=== PATIENT | male | born 1950 | race Caucasian/White ===

== ENCOUNTER 2017-04-04 22:42 | Emergency (ER) | payer OTHER, MEDICARE ==
[~2017-04-04 22:42] MED LIST: ACET-1718 PO; ALPR-1 PO; ALPR-699 PO; BACL-1 PO; CYCL-277 PO; DIV500 PO; HYDR-317; LAMO150T36 PO; LANS15CA54 PO; LEVO25TA57 PO; OLME5TAB8 PO; ONDA4TAB PO; OXYC-865 PO; OXYC-869 PO; PER PO; RANI-318 PO; TADA20TA33 PO; TAMS0.4C25 PO; [UNRECOGNIZED DRUG - CODE] PO
--- NOTE | 2017-04-04 22:49 | ER Report ---
History and Physical Time Seen By MD: 22:48 HPI/ROS CHIEF COMPLAINT: Fall, right rib pain, right wrist pain HISTORY OF PRESENT ILLNESS: 66-year-old male was ascending some stairs when he fell forward onto his right wrist and right ribs. He also struck his right face. He denies LOC, headache, neck pain or shortness of breath. He describes his neck as being sore. Patient has a previous history of fractured right ribs. Patient denies shortness of breath. He points to the right lateral ribs as a site of pain. He notes increased pain with deep inspiration. Patient is right-hand dominant. REVIEW OF SYSTEMS: Respiratory: No cough, no dyspnea. Cardiovascular: As above Gastrointestinal: No vomiting, no abdominal pain. Musculoskeletal: No back pain. Allergies: Coded Allergies: No Known Drug Allergies (Unverified , 07/15/14) Home Meds Active Scripts Oxycodone Hcl/Acetaminophen (PERCOCET 5-325 MG TABLET) 1 Each Tablet, 1 EACH PO Q4-6H Y for PAIN, #20 Prov:MILADIS LINN DO 04/05/17 Oxycodone Hcl/Acetaminophen (PERCOCET 7.5-325 MG TABLET) 1 Each Tablet, 1 EACH PO Q4-6H, #60 Prov:NEGAR MACKENZIE DO 07/15/14 Reported Medications Cyclobenzaprine Hcl (CYCLOBENZAPRINE HCL) 5 Mg Tablet, 10 MG PO Q6H Y for MUSCLE SPASMS, #18 TAB TAKE TWO TABLETS BY MOUTH THREE TIMES A DAY 07/15/14 Acetaminophen With Codeine # 3 (ACETAMINOPHEN-COD #3 TABLET) 1 Each Tablet, 1-2 EACH PO Q6H Y for PAIN, TAB 07/15/14 Ranitidine Hcl (RANITIDINE HCL) 150 Mg Tablet, 150 MG PO DAILY 07/09/14 Lamotrigine (LAMOTRIGINE) 150 Mg Tablet, 150 MG PO DAILY 07/09/14 Tadalafil (CIALIS) 20 Mg Tablet, 20 MG PO 07/09/14 Baclofen (BACLOFEN) 10 Mg Tablet, 10 MG PO TID, #30 TAB TAKE 2 TABLETS BY MOUTH THREE TIMES A DAY 07/09/14 Lansoprazole (PREVACID) 15 Mg Capsule.dr, 30 MG PO BID 11/17/13 Levothyroxine Sodium (SYNTHROID) 25 Mcg Tablet, 50 MCG PO QDAY 11/17/13 Olmesartan Medoxomil (BENICAR) 5 Mg Tablet, 40 MG PO DAILY 11/17/13 Tamsulosin Hcl (FLOMAX) 0.4 Mg Cap.er.24h, 0.4 MG PO 11/17/13 Alprazolam (Alprazolam) 0.5 Mg Tab.rapdis, 0.5 MG PO QID Y for ANXIETY 05/15/11 Divalproex Sodium (Depakote) 500 Mg Tabcr, 1500 MG PO QHS 05/15/11 Reviewed Nurses Notes: Yes Old Medical Records Reviewed: Yes Hx Smoking: Yes Smoking Status: Former Smoker Hx Substance Use Disorder: No Hx Alcohol Use: Yes Constitutional Vital Sign - Last 24 Hours 04/04/17 04/04/17 04/04/17 04/04/17 22:48 22:50 22:52 22:57 Temp 98.3 Pulse 99 101 94 Resp 20 B/P (MAP) 172/100 (124) 172/100 Pulse Ox 93 94 94 O2 Delivery Room Air 04/04/17 04/04/17 04/04/17 04/04/17 23:00 23:02 23:07 23:32 Pulse 98 97 92 B/P (MAP) 166/110 (128) 145/95 (112) Pulse Ox 93 91 92 04/04/17 04/04/17 04/04/17 04/04/17 23:37 23:42 23:47 23:52 Pulse 93 90 91 92 Pulse Ox 93 93 92 89 04/04/17 04/05/17 04/05/17 04/05/17 23:57 00:00 00:02 00:07 Pulse 88 89 91 B/P (MAP) 142/93 (109) Pulse Ox 92 92 92 Physical Exam General Appearance: The patient is alert, has no immediate need for airway protection and no current signs of toxicity. Mild distress, alert and oriented 3, vital signs stable, pulse ox normal, aggressive palpation of the midline of the neck reveals no tenderness HEENT: Pupils equal and round no injection. TMs normal, oropharynx without dental trauma, there is a contusion to the right maxillary cheek. Respiratory: Chest is non tender, lungs are clear to auscultation. Moderate tenderness on the right lateral ribs, no bruising or barton Cardiac: regular rate and rhythm Gastrointestinal: Abdomen is soft and non tender, no masses, bowel sounds normal. Musculoskeletal: Neck: Neck is supple and non tender. Extremities have full range of motion and are non tender. Right wrist with moderate tenderness and soft tissue swelling. Patient notes decreased range of motion. Skin: No rashes or lesions. DIFFERENTIAL DIAGNOSIS: After history and physical exam differential diagnosis was considered for fall in the elderly including but not limited to intracranial injury, long bone and pelvic bone fracture, spinal injury, and intrathoracic injury. Medical Decision Making EKG/Imaging Imaging X-ray: Right ribs, 4 views was obtained. I viewed the images myself on the PACS system. My interpretation of the images is: 2 nondisplaced rib fractures, no evidence of pneumothorax or hemothorax. The radiologist interpretation had no clinically significant variation from this interpretation. X-ray: Right wrist, 3 views was obtained. I viewed the images myself on the PACS system. My interpretation of the images is: Nondisplaced distal radius fracture. The radiologist interpretation had no clinically significant variation from this interpretation. ED Course/Re-evaluation ED Course Patient was admitted to an examination room. H&P was done. The differential diagnoses was considered. On clinical examination. On clinical examination. Patient has significant right wrist and right rib pain. Diagnostic x-rays are ordered. He was offered medication for pain but declined. His diagnostic studies show 2 nondisplaced rib fracture, 7 and 8. There is no pneumothorax. Patient's wrist shows a nondisplaced crack through the distal radius. Patient was placed in a splint with Kenny wrap. Patient advised ibuprofen 400 mg 3 times daily with food. He's also given a prescription for Percocet for temporary pain relief. He is advised to call [facility] for casting of his right wrist. Decision to Disposition Date: Apr 05, 2017 Decision to Disposition Time: 00:00 Depart Departure Latest Vital Signs Vital Signs Date Time Temp Pulse Resp B/P (MAP) Pulse Ox O2 Delivery O2 Flow Rate FiO2 04/05/17 00:07 91 92 04/05/17 00:00 142/93 (109) 04/04/17 22:50 98.3 20 Room Air Impression: Primary Impression: Right rib fracture Additional Impressions: Distal radius fracture, right Fall from ground level Condition: Improved Disposition: HOME OR SELF-CARE Referrals: YWA TAPIA MD (PCP) PURVI RODARTE MD New Scripts Oxycodone Hcl/Acetaminophen (PERCOCET 5-325 MG TABLET) 1 Each Tablet 1 EACH PO Q4-6H Y for PAIN, #20 Prov: MILADIS LINN DO 04/05/17 Patient Instructions: Rib Fracture (ED), Wrist Fracture in Adults (ED) Additional Instructions: Take ibuprofen 200 mg 2 tablets 3 times a day with food Apply ice packs to the affected areas Follow-up with [facility] [phone], address [address] Problem Qualifiers Primary Impression: Right rib fracture Encounter type: initial encounter Rib fracture type: multiple ribs Fracture type: closed Qualified Codes: S22.41XA - Multiple fractures of ribs , right side, initial encounter for closed fracture Additional Impressions: Distal radius fracture, right Encounter type: initial encounter Fracture type: closed Fracture morphology : unspecified fracture morphology Qualified Codes: S52.501A - Unspecified fracture of the lower end of right radius, initial encounter for closed fracture MILADIS LINN DO Apr 04, 2017 22:49
--- NOTE | 2017-04-04 23:55 | RADIOLOGY IMAGING REPORT ---
FACILITY: [facility] PATIENT NAME: Clifton Arteaga : 1950 MR: [id number] V: [id number] EXAM DATE: ORDERING PHYSICIAN: MILADIS LINN TECHNOLOGIST: Location: [facility] Patient: Clifton Arteaga : 1950 Visit/Account:[id number] Date of Sevice: 04/04/2017 INDICATION: fall EXAM DATE: 04/04/2017 11:00 PM COMPARISON: Unavailable at the time of dictation. FINDINGS: 2 views right ribs, 2 views of the chest. Mineralization is normal. Mild cortical irregularity at th e lateral aspects of the 7th and 8th ribs. Lungs are well-expanded and clear. No pleural effusion o r pneumothorax. Heart size is normal. IMPRESSION: Question nondisplaced lateral fractures of the right 7th and 8th ribs. Report Dictated By: Abiodun Avelar MD at 04/04/2017 11:44 PM Report E-Signed By: Abiodun Avelar MD at 04/04/2017 11:49 PM WSN:[id number]
--- NOTE | 2017-04-04 23:55 | RADIOLOGY IMAGING REPORT ---
FACILITY: [facility] PATIENT NAME: Clifton Arteaga : 1950 MR: [id number] V: [id number] EXAM DATE: ORDERING PHYSICIAN: MILADIS LINN TECHNOLOGIST: Location: [facility] [place] Patient: Clifton Arteaga : 1950 Visit/Account:[id number] Date of Sevice: 04/04/2017 INDICATION: fall EXAM DATE: 04/04/2017 11:00 PM COMPARISON: None. FINDINGS: 3 views right wrist. Mineralization may be low. There is a lucency through the distal anterior aspec t of the radius on the oblique view. No additional evidence of fracture or dislocation. Mild osteoa rthrosis in the wrist. Soft tissues are unremarkable. IMPRESSION: Suspected nondisplaced fracture through the distal anterior aspect of the right radius. Report Dictated By: Abiodun Avelar MD at 04/04/2017 11:49 PM Report E-Signed By: Abiodun Avelar MD at 04/04/2017 11:52 PM WSN:[id number]
--- NOTE | 2017-04-04 23:55 | RADIOLOGY IMAGING REPORT ---
FACILITY: [facility] [place] PATIENT NAME: Clifton Arteaga : 1950 MR: [id number] V: [id number] EXAM DATE: ORDERING PHYSICIAN: MILADIS LINN TECHNOLOGIST: Location: [facility] [place] Patient: Clifton Arteaga : 1950 Visit/Account:[id number] Date of Sevice: 04/04/2017 INDICATION: fall EXAM DATE: 04/04/2017 11:00 PM COMPARISON: Unavailable at the time of dictation. FINDINGS: 2 views right ribs, 2 views of the chest. Mineralization is normal. Mild cortical irregularity at th e lateral aspects of the 7th and 8th ribs. Lungs are well-expanded and clear. No pleural effusion o r pneumothorax. Heart size is normal. IMPRESSION: Question nondisplaced lateral fractures of the right 7th and 8th ribs. Report Dictated By: Abiodun Avelar MD at 04/04/2017 11:44 PM Report E-Signed By: Abiodun Avelar MD at 04/04/2017 11:49 PM WSN:[id number]
[2017-04-05] VITALS: BP 142/93
[2017-04-05] MEDS ORDERED: OXYC-865 PO (00:02)
[2017-04-05] MEDS ORDERED: oxyCODONE/ACETAMIN 5/325MG TH 2 TAB/BOTTLE PO ONE (00:05)
== END 2017-04-05 00:22 | disposition home or self-care (01) ==
LOC: ER 22:45
DX: S22.41XA Multiple fractures of ribs, right side, initial encounter for closed fracture (principal); S52.501A Unspecified fracture of the lower end of right radius, initial encounter for closed fracture; W18.30XA Fall on same level, unspecified, initial encounter
CPT/HCPCS: 71046; 71100; 73110; 99283; L0172; L3763

== ENCOUNTER → 2017-08-22 | Outpatient (CLI) | payer OTHER, MEDICARE | LOC: LAB 07:51 | PROVIDERS: ATTEND Nurse Practitioner Adult Health | DX: Z51.81 Encounter for therapeutic drug level monitoring (principal); Z79.899 Other long term (current) drug therapy; E03.9 Hypothyroidism, unspecified; I10 Essential (primary) hypertension | CPT/HCPCS: 36415; 80164; 82040; 82247; 82310; 82374; 82435; 82565; 82947; 84075; 84132; 84155; 84295; 84443; 84450; 84460; 84520 ==

== ENCOUNTER → 2018-04-25 | Outpatient (CLI) | payer OTHER, MEDICARE ==
[~2018-04-25] MED LIST changes: +IOPAMIDOL 61% 100 ML INFUS BTL 100 ML ONE
[2018-04-25 09:01] LABS: LDL CHOLESTEROL 111 mg/dl
--- NOTE | 2018-04-25 14:29 | RADIOLOGY IMAGING REPORT ---
[place] [facility] [place]IENT NAME: Clifton Arteaga : 1950 MR: [id number] V: [id number] EXAM DATE: ORDERING PHYSICIAN: HENRY RAO TECHNOLOGIST: Location: [facility] Patient: Clifton Arteaga : 1950 Visit/Account:[id number] Date of Sevice: 04/25/2018 CT BRAIN WITH AND WITHOUT INDICATION: Falls, dizziness COMPARISON: July 09, 2014 TECHNIQUE: Pre and postcontrast head CT performed with sagittal and coronal reformations. 90 mL Isovu e 300 injected. One of the following dose optimization techniques was utilized in the performance of this exam: automated exposure control; adjustment of the mA and/or kV according to patient size; or u se of iterative reconstruction technique. Specific details can be referenced in the facility's radio logy CT exam operational policy. FINDINGS: The basal cisterns, kearney-white differentiation and convexity sulci are maintained. No intracranial he morrhage, hydrocephalus or midline shift. Normal orbital soft tissues. Two unchanged right temporoparietal periventricular calcifications the largest measuring 4 mm, axial image 46 on the noncontrast head CT. Clear mastoid air cells, mild right ethmoid sinus mucosal thickening. Hyperostosis frontalis. Unchang ed benign sclerotic focus in the right occipital bone, axial image 32. Otherwise unremarkable osseous structures. No pathologic intracranial enhancement. No apparent vascular abnormality. IMPRESSION: 1. Two unchanged in hindsight review punctate to small right temporoparietal periventricular calcific ations in keeping with residua of prior inflammation, infection or ischemia. 2. Otherwise unremarkable head CT without and with contrast. Report Dictated By: Ru Prakash MD at 04/25/2018 2:16 PM Report E-Signed By: Ru Prakash MD at 04/25/2018 2:24 PM WSN:[email or web address]
== END ==
LOC: CT 01:46
PROVIDERS: ATTEND Nurse Practitioner Adult Health
DX: R41.3 Other amnesia (principal); R29.6 Repeated falls; F31.9 Bipolar disorder, unspecified; G93.89 Other specified disorders of brain
CPT/HCPCS: 36415; 70470; 84153; 84443; 84550; 85027; Q9967; 82040; 82247; 82310; 82374; 82435; 82465; 82565; 82947; 83718; 84075; 84132; 84155; 84295; 84450; 84460; 84478; 84520

== ENCOUNTER 2018-09-07 13:48 | Emergency (ER) | payer OTHER, MEDICARE ==
[~2018-09-07 13:48] MED LIST changes: -IOPAMIDOL 61% 100 ML INFUS BTL 100 ML ONE
[2018-09-07] MEDS ORDERED: ASPIRIN 81 MG CHEW PO ONE (13:50)
--- NOTE | 2018-09-07 13:50 | ER Report ---
History and Physical Time Seen By MD: 13:47 HPI/ROS CHIEF COMPLAINT: Mid epigastric pain and burning sensation HISTORY OF PRESENT ILLNESS: Patient is a 68-year-old male here with complaints of midepigastric burning sensation which has been ongoing since this morning. Patient was evaluated at his neurology appointment at which time a CK-MB and EKG were completed. EKG showed no acute findings. Reportedly a CK-MB came back elevated prompting the patient to be seen in the emergency department. Patient reports that he feels that his current pain is due to gastric reflux. Denies prior history of coronary artery disease however he does admit to history of hypertension in the past. Patient is hemodynamically stable at time of evaluation, in no acute distress. EKG showed no ischemic changes. REVIEW OF SYSTEMS: Constitutional: No fever, no chills. Eyes: No discharge. ENT: No sore throat. Cardiovascular: + mid epigastric abdominal pain/burning Respiratory: No cough, no shortness of breath. Gastrointestinal: + mid epigastric pain, no vomiting. Genitourinary: No hematuria. + dysuria Musculoskeletal: No back pain. Skin: No rashes. Neurological: No headache. Allergies: Coded Allergies: No Known Drug Allergies (Unverified , 07/15/14) Home Meds Reported Medications Allopurinol (ZYLOPRIM) 300 Mg Tablet, 300 MG PO QDAY, TAB 09/07/18 Melatonin (MELATONIN) 5 Mg Tablet, 5 MG PO HS 09/07/18 Gabapentin (GABAPENTIN) 300 Mg Capsule, 300 MG PO TID, CAPSULE 09/07/18 Doxepin Hcl (DOXEPIN HCL) 50 Mg Capsule, 50 MG PO DAILY, CAPSULE 09/07/18 Citalopram Hydrobromide (CITALOPRAM HBR) 20 Mg Tablet, 20 MG PO QDAY, #5 TAB 09/07/18 Meclizine Hcl (MECLIZINE HCL) 12.5 Mg Tablet, 25 MG PO BID 09/07/18 Cyclobenzaprine Hcl (CYCLOBENZAPRINE HCL) 5 Mg Tablet, 10 MG PO Q6H PRN for MUSCLE SPASMS, #18 TAB TAKE TWO TABLETS BY MOUTH THREE TIMES A DAY 07/15/14 Lansoprazole (PREVACID) 15 Mg Capsule.dr, 30 MG PO BID 11/17/13 Olmesartan Medoxomil (BENICAR) 5 Mg Tablet, 40 MG PO DAILY 11/17/13 Tamsulosin Hcl (FLOMAX) 0.4 Mg Cap.er.24h, 0.4 MG PO 11/17/13 Divalproex Sodium (Depakote) 500 Mg Tabcr, 1500 MG PO QHS 05/15/11 Discontinued Reported Medications Acetaminophen With Codeine # 3 (ACETAMINOPHEN-COD #3 TABLET) 1 Each Tablet, 1-2 EACH PO Q6H PRN for PAIN, TAB 07/15/14 Ranitidine Hcl (RANITIDINE HCL) 150 Mg Tablet, 150 MG PO DAILY 07/09/14 Lamotrigine (LAMOTRIGINE) 150 Mg Tablet, 150 MG PO DAILY 07/09/14 Tadalafil (CIALIS) 20 Mg Tablet, 20 MG PO 07/09/14 Baclofen (BACLOFEN) 10 Mg Tablet, 10 MG PO TID, #30 TAB TAKE 2 TABLETS BY MOUTH THREE TIMES A DAY 07/09/14 Levothyroxine Sodium (SYNTHROID) 25 Mcg Tablet, 50 MCG PO QDAY 11/17/13 Alprazolam (Alprazolam) 0.5 Mg Tab.rapdis, 0.5 MG PO QID PRN for ANXIETY 05/15/11 Discontinued Scripts Oxycodone Hcl/Acetaminophen (PERCOCET 5-325 MG TABLET) 1 Each Tablet, 1 EACH PO Q4-6H PRN for PAIN, #20 Prov:MILADIS LINN DO 04/05/17 Oxycodone Hcl/Acetaminophen (PERCOCET 7.5-325 MG TABLET) 1 Each Tablet, 1 EACH PO Q4-6H, #60 Prov:NEGAR MACKENZIE DO 07/15/14 Hx Smoking: Yes Smoking Status: Former Smoker Hx Substance Use Disorder: No Hx Alcohol Use: Yes Constitutional Vital Sign - Last 24 Hours 09/07/18 13:54 Temp 98.2 Pulse 80 Resp 16 B/P (MAP) 125/81 Pulse Ox 90 O2 Delivery Room Air Physical Exam General Appearance: The patient is alert, has no immediate need for airway protection and no signs of toxicity. No acute distress Eyes: Pupils equal and round no pallor or injection. ENT, Mouth: Mucous membranes are moist. Respiratory: There are no retractions, lungs are clear to auscultation. Cardiovascular: Regular rate and rhythm. Gastrointestinal: Mild tenderness on palpation in the midepigastrium, no rebound or guarding, bowel sounds normal Neurological: No focal neurological deficits, intermittent upper extremity movement which the patient attributes to tardive dyskinesia Skin: Warm and dry, no rashes. Musculoskeletal: Neck is supple non tender. Extremities are nontender, nonswollen and have full range of motion. DIFFERENTIAL DIAGNOSIS: After history and physical exam differential diagnosis was considered for chest pain including but not limited to myocardial ischemia, pericarditis pulmonary embolus, chest wall pain, pleural inflammation and pulmonary infectious causes, gastric reflux Medical Decision Making Data Points Result Diagram: 09/07/18 1402 09/07/18 1402 Laboratory Hematology Test 09/07/18 14:02 White Blood Count 7.6 k/uL (4.5-11.0) Red Blood Count 5.02 M/uL (4.00-5.60) Hemoglobin 16.0 g/dL (14.0-18.0) Hematocrit 46.0 % (42.0-52.0) Mean Corpuscular Volume 91.5 fL (80.0-96.0) Mean Corpuscular Hemoglobin 31.8 pg (26.0-33.0) Mean Corpuscular Hemoglobin Concent 34.8 g/dL (32.0-36.0) Red Cell Distribution Width 13.8 % (11.5-14.5) Platelet Count 298 K/uL (150-450) Mean Platelet Volume 7.1 fL (7.2-11.1) L Neutrophils (%) (Auto) 54.3 % (39.4-72.5) Lymphocytes (%) (Auto) 33.6 % (17.6-49.6) Monocytes (%) (Auto) 10.3 % (4.1-12.4) Eosinophils (%) (Auto) 0.7 % (0.4-6.7) Basophils (%) (Auto) 1.1 % (0.3-1.4) Nucleated RBC Relative Count (auto) 0.0 /100WBC Neutrophils # (Auto) 4.1 K/uL (2.0-7.4) Lymphocytes # (Auto) 2.6 K/uL (1.3-3.6) Monocytes # (Auto) 0.8 K/uL (0.3-1.0) Eosinophils # (Auto) 0.1 K/uL (0.0-0.5) Basophils # (Auto) 0.1 K/uL (0.0-0.1) Nucleated RBC Absolute Count (auto) 0.00 K/uL Chemistry Test 09/07/18 14:02 Sodium Level 138 mmol/L (137-145) Potassium Level 3.6 mmol/L (3.5-5.0) Chloride Level 106 mmol/L (98-107) Carbon Dioxide Level 22 mmol/L (22-30) Blood Urea Nitrogen 21 mg/dl (9-21) Creatinine 1.10 mg/dl (0.66-1.25) Glomerular Filtration Rate Calc > 60.0 Random Glucose 100 mg/dl (75-110) Calcium Level 9.7 mg/dl (8.4-10.2) Total Bilirubin 0.6 mg/dl (0.2-1.3) Aspartate Amino Transf (AST/SGOT) 29 U/L (0-35) Alanine Aminotransferase (ALT/SGPT) 38 U/L (0-56) Alkaline Phosphatase 73 U/L (0-126) Troponin I < 0.012 ng/ml B-Type Natriuretic Peptide 7 pg/ml (0-100) Total Protein 6.8 g/dl (6.3-8.2) Albumin 4.2 g/dl (3.5-5.0) Lipase 111 U/L (23-300) Coagulation Test 09/07/18 14:02 Prothrombin Time 12.8 seconds (12.0-14.4) Prothromb Time International Ratio 0.96 Activated Partial Thromboplast Time 31 seconds (23-35) Urinalysis Test 09/07/18 14:31 Urine Color Yellow Urine Clarity Clear Urine pH 5.0 pH (4.8-9.5) Urine Specific Porter 1.011 Urine Protein Negative mg/dL (NEGATIVE) Urine Glucose (UA) Negative mg/dL (NEGATIVE) Urine Ketones Negative mg/dL (NEGATIVE) Urine Blood Negative (NEGATIVE) Urine Nitrite Negative (NEGATIVE) Urine Bilirubin Negative (NEGATIVE) Urine Urobilinogen Negative mg/dL (0.2-1.9) Urine Leukocyte Esterase Negative (NEGATIVE) Urine RBC <1 /HPF (0-2/HPF) Urine WBC 1 /HPF (0-5/HPF) Urine Squamous Epithelial Cells Few /LPF (</=FEW) Urine Bacteria Negative /HPF (NONE-FEW) Urine Mucus None /HPF (NONE-FEW) EKG/Imaging EKG Interpretation 12 lead EKG: Normal sinus rhythm, right bundle branch block, ventricular rate 78, QTC 471, no ischemic findings Rhythm: normal sinus rhythm [place]: normal QRS: normal ST segments: normal Imaging PATIENT NAME: Clifton Arteaga : 1950 MR: [id number] V: [id number] EXAM DATE: ORDERING PHYSICIAN: MICHAEL ADAM TECHNOLOGIST: Location: [facility] Patient: Clifton Arteaga : 1950 Visit/Account:[id number] Date of Sevice: 09/07/2018 CHEST SINGLE AP Indication: Chest Pain Comparison: 04/04/2017 Findings: Heart size within normal limits. There is no focal infiltrate or lobar consolidation. Hyperextension the lungs with chronic interstitial changes. No pneumothorax or pleural effusion. IMPRESSION: 1. No acute cardiopulmonary process. ED Course/Re-evaluation ED Course Patient is a 68-year-old male here with complaints of midepigastric abdominal pain and an elevated CK-MB at the neurology appointment shortly prior to evaluation. Patient was advised to come to the emergency department for further evaluation. EKG showed no ischemic findings at time of evaluation. Pain reportedly had started early this morning. Troponin was found to be negative. There is no leukocytosis, electrolytes are stable. Chest x-ray was unremarkable. Patient was given a GI cocktail. close PCP follow-up recommended. Return precautions were provided. Decision to Disposition Date: Sep 07, 2018 Decision to Disposition Time: 15:01 Depart Departure Latest Vital Signs Vital Signs Date Time Temp Pulse Resp B/P (MAP) Pulse Ox O2 Delivery O2 Flow Rate FiO2 09/07/18 13:54 98.2 80 16 125/81 90 Room Air Impression: Primary Impression: Epigastric abdominal pain Condition: Improved Disposition: HOME OR SELF-CARE Patient Instructions: Abdominal Pain (ED) Additional Instructions: Please drink plenty of water. Please continue your medications as prescribed. Please return promptly if you develop fevers, worsening pain, inability keep down food or fluids, fevers, chest pain, shortness of breath. Please follow-up with your primary care provider in the next 24-48 hours. MICHAEL ADAM DO Sep 07, 2018 13:50
--- NOTE | 2018-09-07 14:12 | EKG ---
[facility] PATIENT NAME: LEE TREVINO : [id number] MR: [id number] V: [id number] EXAM DATE: ORDERING PHYSICIAN: MICHAEL ADAM TECHNOLOGIST: RUBINA Khan Reason : Chest pain Blood Pressure : / mmHG Vent. Rate : 078 BPM Atrial Rate : 078 BPM P-R Int : 178 ms QRS Dur : 148 ms QT Int : 414 ms P-R-T Axes : 062 -48 016 degrees QTc Int : 471 ms Normal sinus rhythm Right bundle branch block Left axis deviation Abnormal ECG When compared with ECG of 15-JUL-2014 10:27, No significant change was found Confirmed by Randy Lopez ([id number]) on 09/07/2018 4:14:05 PM Referred By: KIA Confirmed By:Randy Chakraborty
[2018-09-07 14:14] LABS: PLATELET COUNT, AUTOMATED 298 K/uL (150-450)
[2018-09-07] MEDS ORDERED: MAG HYD/AL HYD/SIMETH 30ML UDC PO ONE (14:20)
[2018-09-07] MEDS ORDERED: LIDOCAINE 2% VISC SLN 15ML UDC PO ONE (14:20)
[2018-09-07 14:22] LABS: INR 0.96
[2018-09-07] MEDS ORDERED: GABA-549 PO (14:22)
[2018-09-07] MEDS ORDERED: CITA-145 PO (14:22)
[2018-09-07] MEDS ORDERED: MELA5TAB3 PO (14:22)
[2018-09-07] MEDS ORDERED: ALLO-119 PO (14:22)
[2018-09-07] MEDS ORDERED: DOXE50CA46 PO (14:22)
[2018-09-07] MEDS ORDERED: MECL12.5 PO (14:22)
--- NOTE | 2018-09-07 14:47 | RADIOLOGY IMAGING REPORT ---
FACILITY: [facility] PATIENT NAME: Clifton Arteaga : 1950 MR: [id number] V: [id number] EXAM DATE: ORDERING PHYSICIAN: MICHAEL ADAM TECHNOLOGIST: Location: [facility] - [place], [place] Patient: Clifton Arteaga : 1950 Visit/Account:[id number] Date of Sevice: 09/07/2018 CHEST SINGLE AP Indication: Chest Pain Comparison: 04/04/2017 Findings: Heart size within normal limits. There is no focal infiltrate or lobar consolidation. Hyperextension the lungs with chronic interst itial changes. No pneumothorax or pleural effusion. IMPRESSION: 1. No acute cardiopulmonary process. Report Dictated By: Ru Pereira MD at 09/07/2018 2:39 PM Report E-Signed By: Ru Pereira MD at 09/07/2018 2:40 PM WSN:[id number]
[2018-09-07 15:17] VITALS: BP 132/82
== END 2018-09-07 15:14 | disposition home or self-care (01) ==
LOC: ER 14:24
DX: R10.13 Epigastric pain (principal); R07.9 Chest pain, unspecified; I45.10 Unspecified right bundle-branch block
CPT/HCPCS: 71045; 81001; 82040; 82247; 82310; 82374; 82435; 82565; 82947; 83690; 83880; 84075; 84132; 84155; 84295; 84450; 84460; 84484; 84520; 85025; 85610; 85730; 93005; 99284